=== PATIENT | female | born 1975 | race American Indian/Alaskan Native ===

== ENCOUNTER 2022-07-22 10:09 | Outpatient (CLI) | payer OTHER ==
--- NOTE | 2022-07-22 13:03 | XRAY Report ---
PROCEDURE: Lumbar Spine 2 View INDICATIONS: LOWER BACK PAIN TECHNIQUE: 2 views of the lumbar spine were acquired. COMPARISON: None. FINDINGS: Bones: 5 [id number] vertebrae are present. There is normal bony alignment. No acute vertebral body compression fractures. No suspicious bony lesions. Multilevel spondylosis of the lumbar spine with degenerative endplate changes and endplate osteophyte formation. Moderate mid and lower lumbar facet arthropathy. Soft tissues: Overlying bowel gas pattern is normal. No suspicious soft tissue calcifications. IMPRESSION: Lumbar spine without acute fracture or malalignment. Multilevel lumbar spondylosis with associated facet arthropathy. Reviewed by: Paxton Mc MD on 07/22/2022 1:02 PM PST Approved by: Paxton Mc MD on 07/22/2022 1:02 PM PST Station ID: [id number]
--- NOTE | 2022-07-22 13:04 | XRAY Report ---
PROCEDURE: Hip w/Pelvis 2-3V RT INDICATIONS: LOWER BACK PAIN TECHNIQUE: AP pelvis with lateral view(s) of the right hip(s). COMPARISON: None. FINDINGS: Bones: No acute fractures or dislocations. Pelvic ring appears intact. No suspicious bony lesions. Lower lumbar spondylosis. Soft tissues: The visualized bowel gas pattern is normal. No suspicious soft tissue calcifications. IMPRESSION: Right hip without acute fracture or dislocation. Lower lumbar spondylosis. Reviewed by: Paxton Mc MD on 07/22/2022 1:03 PM PST Approved by: Paxton Mc MD on 07/22/2022 1:03 PM PST Station ID: [id number]
== END 2022-07-22 10:10 | disposition home or self-care (01) ==
LOC: DI 10:09
PROVIDERS: ATTEND Physician Assistant
DX: M25.551 Pain in right hip (principal); R29.898 Other symptoms and signs involving the musculoskeletal system; M47.816 Spondylosis without myelopathy or radiculopathy, lumbar region